=== PATIENT | female | born 1980 | race Two or more races ===

== ENCOUNTER 2017-03-16 16:53 | Emergency (ER) | payer MEDICAID ==
[2017-03-16 16:59] VITALS: BP 122/71
[2017-03-16 17:55] LABS: Basophils # (auto) 0 uL; CONDITION Y; DEFINITIVE SEE PRINTOUT; Eosinophils # (auto) 0 uL; Eosinophils % (auto) 0.2 % (0.0-7.0); Hematocrit 26.4 % (36.0-46.0); Hemoglobin 7.6 g/dL (12.2-16.2); Lymphocytes # (auto) 1.5 uL; Lymphocytes % (auto) 12.4 % (10.0-50.0); Mean Corpuscular Hemoglobin 15.7 pg (28.0-32.0); Mean Corpuscular Hgb Conc. 28.7 g/dL (32.0-36.0); Mean Corpuscular Volume 54.6 fL (80.0-100.0); Mean Platelet Volume 9.1 fL (7.4-10.4); Monocytes # (auto) 1.1 uL; Neutrophils # (auto) 9.3 uL; Neutrophils % (auto) 78.4 % (37.0-80.0); Platelet Count (auto) 312 10^3/uL (140-450); White Blood Cell 11.8 10^3/uL (4.4-10.8)
[2017-03-16 17:56] LABS: Red Cell Distribution Width 21.3 % (11.6-16.0)
[2017-03-16 18:23] LABS: Hypochromia Marked; Large Platelets FEW; Microcytosis Marked; Ovalocytes FEW; Platelet Estimate Adequate
[2017-03-16 18:24] LABS: Tear Drop Cells FEW
[2017-03-16 18:33] LABS: Albumin 3.8 g/dL (3.4-5.0); Alkaline Phosphatase 48 U/L (45-117); Anion Gap 10 (5-15); Aspartate Aminotransferase 11 U/L (15-37); BUN/Creatinine Ratio 7.9; Bilirubin, Total 0.6 mg/dL (0.2-1.0); Blood Urea Nitrogen 5 mg/dL (7-18); Calcium 8.9 mg/dL (8.5-10.1); Carbon Dioxide 22 mmol/L (21-32); Chloride 107 mmol/L (98-107); GFR African American 136 mL/min; GFR Non-African American 112 mL/min; Glucose 95 mg/dL (74-106); Magnesium 2.4 mg/dL (1.6-2.6); Potassium 3.7 mmol/L (3.5-5.1); Sodium 139 mmol/L (136-145); Total Protein 7.9 g/dL (6.4-8.2)
== END 2017-03-16 21:50 | disposition left against medical advice (07) ==
LOC: ER 16:58 → EDBD 16:58 → ER 21:50
DX: R42 Dizziness and giddiness (principal); Z53.21 Procedure and treatment not carried out due to patient leaving prior to being seen by health care provider
CPT/HCPCS: 36415; 80053; 83735; 84484; 84702; 85025; 93005